=== PATIENT | male | born 1995 | race Two or more races ===

== ENCOUNTER 2017-08-18 00:17 | Emergency (ER) | payer BC, OTHER ==
[~2017-08-18] VITALS: Ht 177.8 cm; Wt 77.0 kg
[~2017-08-18 00:17] MED LIST: CIPR500T2 PO
[2017-08-18 00:38] VITALS: BP 121/71; PULSE 70; RESP 16; TEMP 98.9; O2SAT 99
--- NOTE | 2017-08-18 01:19 | PD ---
HPI Chief Complaint: Complaint Time Seen by Provider: 00:51 Travel History International Travel<30 days: No Contact w/Intl Traveler<30days: No Traveled to known affect area: No History of Present Illness HPI The patient is a 21 year old male who presents to the [facility] emergency department with a history of right-sided scrotal pain, testicle pain that began on Friday of this past week. He reports that on he saw his primary care physician regarding this. The patient was diagnosed with suspected epididymitis. The patient was instructed to follow-up with a urologist. The patient saw the urologist on . He saw Dr. Cabezas. The patient reports that he had an ultrasound done at that time that showed a cyst and the patient was started on ciprofloxacin. On review of systems, the patient denies having any penile discharge, history of fevers, cough, congestion, neck pain, chest pain, shortness of breath, abdominal pain, vomiting, diarrhea, or neurologic symptoms. The patient denies having any dysuria, however he has had urinary frequency. He denies any urinary urgency. [facility] Past Medical History Narrative Medical The patient's past medical history is reportedly none. Medical History: Denies Significant Hx Tetanus Vaccination: > 5 Years Influenza Vaccination: No Past Surgical History Surgical History: No Previous Surgery Social History Alcohol Use: Yes (RARELY) Tobacco Use: Yes Substance Use: No Allergies-Medications (Allergen,Severity, Reaction): Coded Allergies: No Known Allergies (Verified Allergy, Unknown, 08/17/17) Reported Meds & Prescriptions Reported Meds & Active Scripts Active Reported Ciprofloxacin (Ciprofloxacin HCl) 500 Mg Tab 500 Mg PO BID Review of Systems Except as stated in HPI: all other systems reviewed are Neg General / Constitutional: No: Fever Eyes: No: Visual changes HENT: No: Headaches Cardiovascular: No: Chest Pain or Discomfort Respiratory: No: Shortness of Breath Gastrointestinal: No: Abdominal Pain Genitourinary: Positive: Frequency, No: Dysuria Musculoskeletal: No: Pain Skin: No Rash Neurologic: No: Weakness Psychiatric: No: Depression Endocrine: No: Polydipsia Hematologic/Lymphatic: No: Easy Bruising Physical Exam Narrative General: The patient is a well-developed well-nourished male in no acute distress Head and Neck exam: Head is normocephalic atraumatic. Eyes: EOMI, pupils are equal round and reactive to light. Nose: Midline septum with pink mucous membranes Mouth: Dentition unremarkable. Moist mucus membranes. Posterior oropharynx is not erythematous. No tonsillar hypertrophy. Uvula midline. Airway patent. Neck: No palpable lymphadenopathy. No nuchal rigidity. No thyromegaly. Cardiovascular: Regular rate and rhythm without murmurs, gallops, or rubs. Lungs: Clear to auscultation bilaterally. No wheezes, rhonchi, or rales. Abdomen: Soft, without tenderness to palpation in all 4 quadrants of the abdomen. No guarding, rebound, or rigidity. Normal bowel sounds are audible. No tenderness on palpation of McBurney's point Extremities: No clubbing, cyanosis, or edema. 2+ pulses in all 4 extremities. Back: No spinous process tenderness to palpation. No costovertebral angle tenderness to palpation. Neurologic Exam: Cranial nerves 2-12 were intact on exam. Strength is 5/5 in all 4 extremities. No sensory deficits noted. No dysdiadochokinesis. Good finger to nose and Heel to deng bilaterally. Skin Exam: No rash noted. Intact skin that is warm and dry. Genital exam: The patient is an uncircumcised male. No genital lesions or rash noted. The patient on examination of the right side of the scrotum has pain on palpation along the posterior aspect of the right testicle with prominence noted on palpation over the epididymis. There is no palpable abscess. No palpable hernia. No pointing or fluctuance. No crepitus. Data Data Last Documented VS Vital Signs Date Time Temp Pulse Resp B/P (MAP) Pulse Ox O2 Delivery O2 Flow Rate FiO2 08/18/17 00:38 98.9 70 16 121/71 (88) 99 Orders Orders Us Testicles W Doppler (08/18/17 01:24) Ed Discharge Order (08/18/17 03:15) MDM Medical Decision Making Medical Screen Exam Complete: Yes Emergency Medical Condition: Yes Medical Record Reviewed: Yes Interpretation(s) Last Impressions Scrotum Ultrasound 08/18/17 0124 Signed Impressions: Service Date/Time: Friday, August 18, 2017 01:49 - CONCLUSION: 1. No evidence of torsion. 2. Findings characteristic of epididymitis on the right 1. Bereket Salas MD Differential Diagnosis Varicocele, versus epididymitis, versus hydrocele, versus testicular torsion Narrative Course During the course of the patients emergency department visit, the patients history, examination, and differential diagnosis were reviewed with the patient. The patient had laboratory studies reviewed from the [place] emergency department that were done earlier this evening. An ultrasound was ordered of the patient's testicles and scrotum. The patients laboratory studies were reviewed from the other facility remarkable for a white count of 10.5, hemoglobin 14.6, platelets 177 with neutrophils 70.5, CMP is unremarkable, lactic acid 0.7. Radiology studies were reviewed and remarkable for an ultrasound that reveals normal-sized testicles bilaterally with normal Doppler flow I laterally without any evidence of mass. There is a right sided epididymis that is heterogeneously enlarged, small right hydrocele. No evidence of abscess. The patient is instructed on elevation of the scrotum for relief of discomfort. The patient is instructed to continue on ciprofloxacin and follow-up with Dr. Cabezas this week. The patient is resting comfortably and feels better, is alert and in no distress. The patients results and examination findings were discussed with the patient. The repeat examination is unremarkable and benign. The history, exam, diagnostic testing, and current condition do not suggest any significant pathology to warrant further testing, continued ED treatment, admission, or surgical evaluation at this point. The vital signs have been stable. The patient does not have uncontrollable pain, intractable vomiting, or other significant symptoms. The patient's condition is stable and appropriate for discharge. The patient will pursue further outpatient evaluation with a primary care physician or other designated or consulting physician as indicated in the discharge instructions. The patient expressed understanding and was agreeable with this plan. Diagnosis Primary Impression: Epididymitis Additional Impression: Hydrocele in adult Referrals: Gerson Cabezas MD 2 days Patient Instructions: Epididymitis (ED), General Instructions, Hydrocele (ED) Additional Instructions: The patient is instructed to continue on ciprofloxacin as previously prescribed. Med/Other Pt SpecificInfo: No Change to Meds Disposition: 01 DISCHARGE HOME Condition: Stable Halle Noyola MD Aug 18, 2017 01:19
--- NOTE | 2017-08-18 02:48 | RADRPT ---
EXAM DATE/TIME: 08/18/2017 01:49 [facility] COMPARISON: No previous studies available for comparison. INDICATIONS : Right testicular pain. MEDICAL HISTORY : Testicular pain. Swelling on right testicle. SURGICAL HISTORY : None. ENCOUNTER: Initial ACUITY: 3 days PAIN SCORE: 6/10 LOCATION: Bilateral testicles. MEASUREMENTS: RIGHT TESTICLE: 4.4 x 3.4 x 2.4cm LEFT TESTICLE: 4.9 x 2.8 x 2.2cm FINDINGS: Ultrasound examination of the testicles demonstrates normal size bilaterally. There is normal Doppler flow bilaterally without evidence of mass. The right epididymis is heterogeneous and enlarged bilate rally which may reflect epididymitis. Small right hydrocele is present CONCLUSION: 1. No evidence of torsion. 2. Findings characteristic of epididymitis on the right 1. Bereket Salas MD on August 18, 2017 at 2:46 Board Certified Radiologist. This report was verified electronically.
== END 2017-08-18 03:29 | disposition home or self-care (01) ==
LOC: NEPE 00:17
DX: N45.1 Epididymitis (principal); N43.3 Hydrocele, unspecified; Z72.0 Tobacco use
CPT/HCPCS: 76870; 80053; 83605; 85025; 87040; 93975; 96374; 99281; 99285; J1885; J7030